=== PATIENT | female | born 1980 | race Two or more races ===

== ENCOUNTER 2017-11-26 15:54 | Emergency (ER) | payer MEDICAID, OTHER, SELFPAY ==
[~2017-11-26] VITALS: Ht 175.3 cm; Wt 155.0 kg
[2017-11-26 16:01] VITALS: BP 149/80
== END 2017-11-26 17:59 | disposition home or self-care (01) ==
LOC: ED 17:53
DX: B34.9 Viral infection, unspecified (principal)
CPT/HCPCS: 71046; 99284